=== PATIENT | female | born 2000 | race Caucasian/White ===

== ENCOUNTER 2019-07-30 12:07 | Emergency (ER) | payer MEDICAID ==
[~2019-07-30] VITALS: Ht 149.9 cm; Wt 59.1 kg
[2019-07-30 12:23] VITALS: BP 107/71
--- NOTE | 2019-07-30 12:30 | NUR ---
PATIENT AMBULATED TO BED 6 AT THIS TIME.
--- NOTE | 2019-07-30 12:35 | NUR ---
PT BIB FAMILY C/O INTERMITTENT BURNING PAIN UPON VOIDING WITH FREQUENCY AND HESITANCY X 1 MONTH. ADMITS TO OCCASIONAL WHITE VAG DC; DELIVERY 5 MONTHS HX--LEFT PARTIAL NEPHRECTOMY RX---NONE
[2019-07-30 14:00] VITALS: BP 102/68
--- NOTE | 2019-07-30 14:00 | NUR ---
Patient discharged with v/s stable. Written and verbal after care instructions given and explained. Patient alert, oriented and verbalized understanding of instructions. Ambulatory with steady gait. All questions addressed prior to discharge. ID band removed. Patient advised to follow up with PMD. Rx of PYRIDIUM,MACROBID given. Patient educated on indication of medication including possible reaction and side effects. Opportunity to ask questions provided and answered.
== END 2019-07-30 14:00 | disposition home or self-care (01) ==
LOC: MED 12:07
DX: N39.0 Urinary tract infection, site not specified (principal); Z98.890 Other specified postprocedural states
CPT/HCPCS: 81002; 81025; 99283

== ENCOUNTER 2022-12-03 03:35 | Emergency (ER) | payer MEDICAID ==
[~2022-12-03] VITALS: Ht 149.9 cm; Wt 56.2 kg
[2022-12-03 03:41] VITALS: BP 107/69
--- NOTE | 2022-12-03 03:46 | NUR ---
to bed ambulatory
--- NOTE | 2022-12-03 03:53 | NUR ---
Dr. Ramirez examining patient.
--- NOTE | 2022-12-03 04:00 | NUR ---
Patient resting in bed, A/Ox4, chest rise and fall symmetrical, no s/s of distress
[2022-12-03] MEDS: NACL 0.9% 1,000 ML IV ONE (04:22)
[2022-12-03] MEDS: KETOROLAC 30 MG/ML VIAL IVP ONE (04:35)
[2022-12-03] MEDS: ONDANSETRON 4 MG/2 ML VIAL IVP ONE (04:35)
[2022-12-03 05:03] LABS: BASOPHILS % (AUTO) 0.6 % (0.0-2.0); EOSINOPHILS # (AUTO) 0.1 K/uL (0-0.4); EOSINOPHILS % (AUTO) 1.3 % (0.0-4.0); HEMATOCRIT 33.5 % (36-48); HEMOGLOBIN 10.6 g/dL (12.0-16.0); LYMPHOCYTES # (AUTO) 2.5 K/uL (2.5-16.5); LYMPHOCYTES % (AUTO) 33.1 % (20.5-51.1); MEAN CORPUSCULAR HEMOGLOBIN 24 pg (27-31); MEAN CORPUSCULAR HGB CONC 32 g/dL (33-37); MONOCYTES # (AUTO) 0.4 K/uL (0.8-1.0); MONOCYTES % (AUTO) 5.4 % (1.7-9.3); NEUTROPHILS # (AUTO) 4.4 K/uL (1.8-7.7); NEUTROPHILS % (AUTO) 59.6 % (42.2-75.2); PLATELET COUNT (AUTO) 290 K/uL (140-450); RED BLOOD CELL COUNT(AUTO) 4.53 MIL/uL (4.20-5.40); RED CELL DISTRIBUTION WIDTH 14.9 % (11.6-13.7); WHITE BLOOD COUNT (AUTO) 7.4 K/uL (4.8-10.8)
[2022-12-03] MEDS ORDERED: IBUP-2213 PO (05:21)
[2022-12-03] MEDS ORDERED: ONDA-188 PO (05:21)
--- NOTE | 2022-12-03 05:32 | NUR ---
Patient resting in bed, A/Ox4, chest rise and fall symmetrical, no c/o pain or s/s of distress
[2022-12-03 05:38] LABS: SODIUM SERUM 139 mmol/L (136-145)
[2022-12-03 05:39] LABS: ALBUMIN 4.2 g/dL (3.4-5.0); ANION GAP 13.1 (8-16); ASPARTATE AMINOTRANSFERASE 13 U/L (15-37); CARBON DIOXIDE 27.1 mmol/L (21-32); CHLORIDE 102 mmol/L (98-107); CREATININE 0.7 mg/dL (0.6-1.3); GFR ARICAN-AMERICAN 133 mL/min (>90); GLUCOSE 111 mg/dL (74-106); POTASSIUM 3.2 mmol/L (3.5-5.1); TOTAL BILIRUBIN 0.3 mg/dL (0.0-1.0); UREA NITROGEN, BLOOD 14 mg/dL (7-18)
[2022-12-03 05:44] VITALS: BP 104/51
== END 2022-12-03 05:44 | disposition home or self-care (01) ==
LOC: MED 03:35
DX: R51.9 Headache, unspecified (principal); Z20.822 Contact with and (suspected) exposure to COVID-19; R00.2 Palpitations; H92.01 Otalgia, right ear; F12.90 Cannabis use, unspecified, uncomplicated; Z79.899 Other long term (current) drug therapy
CPT/HCPCS: 36415; 80053; 81025; 84484; 85025; 87426; 96361; 96374; 96375; 99284; J1885; J2405; J7030